=== PATIENT | female | born 1975 | race Caucasian/White ===

== ENCOUNTER 2018-12-23 08:40 | Emergency (ER) | payer BC ==
--- NOTE | 2018-12-23 08:55 | EDPHY ---
H & P Time Seen by Provider: 12/23/18 08:54 HPI/ROS: Chief complaint. Anxiety HPI. 43-year-old female presents emergency department by EMS with anxiety. She says is building up for the last few days. She has a history of panic attacks. She tells me she takes Ativan 2 mg 4 times daily and has been out the last several days. She has an upcoming appointment on Saturday. She awoke this morning feeling somewhat wobbly and foggy. She denies suicide and homicide ideation. No chest discomfort, shortness of breath, abdominal pain. No fever. ROS 10 systems were reviewed and negative with the exception of the elements mentioned in the history of present illness Past Medical/Surgical History: Anxiety, panic attacks, benzodiazepine withdrawal Social History: Single, nonsmoker, no alcohol Smoking Status: Never smoked Physical Exam: General Appearance: Alert well-developed female mild distress vital signs show heart rate 113 Eyes: Pupils equal and round no pallor or injection. ENT, Mouth: Mucous membranes are moist. Respiratory: There are no retractions, lungs are clear to auscultation. Cardiovascular: Regular rate and rhythm. Gastrointestinal: Abdomen is soft and nontender, no masses, bowel sounds normal. Neurological: Awake and alert, sensory and motor exams grossly normal. Skin: Warm and dry, no rashes. Musculoskeletal: Neck is supple nontender. Extremities symmetrical, full range of motion. Psychiatric: Patient is oriented X 3, there is no agitation. Constitutional: Initial Vital Signs Temperature (C) 36.5 C 12/23/18 09:02 Heart Rate 113 H 12/23/18 09:02 Respiratory Rate 18 12/23/18 09:02 Blood Pressure 110/89 H 12/23/18 09:02 O2 Sat (%) 99 12/23/18 09:02 O2 Delivery Mode Room Air Allergies/Adverse Reactions: codeine Allergy (Verified 12/23/18 09:04) Rash Sulfa (Sulfonamide Antibiotics) Allergy (Verified 12/23/18 09:04) Rash tramadol Allergy (Verified 12/23/18 09:04) Rash Home Medications: Medication Instructions Recorded Potassium Chloride Po [Potassium 20 meq PO DAILY #30 udcup 06/28/18 Chloride 20 mg/15 ml (*)] LORazepam [Ativan 2 mg tab] 2 mg PO Q6H #36 tablet 07/16/18 OXcarbazepine [Trileptal 300mg (*)] 300 mg PO BID #120 tab 07/16/18 LORazepam [Ativan] 1 mg PO Q6-8PRN PRN #10 tab 12/23/18 Medical Decision Making Procedures: EXECUTIVE MANAGER Aware shows no matches ED Course/Re-evaluation: Ativan 2 mg orally Multiple phone calls placed to patient's prescribing physician and the phone calls have not been return. 1 of the phone numbers has been disconnected I cannot find this patient on EXECUTIVE MANAGER Aware. Patient and I discussed treatment plan including criteria for return importance of follow-up and further evaluation. She expresses understanding and agreement Differential Diagnosis: Patient has a history of benzodiazepine withdrawal. She is out of her Ativan. I cannot find when was her last prescription. I have not been able to speak to her regular physician. I do not want the patient to go into benzo but diazepam in withdrawal and so she will be given a short prescription for Ativan until she can see her regular physician - Data Points Medications Given: Discontinued Medications Lorazepam (Ativan) 2 mg PO ONCE ONE Stop: 12/23/18 09:08 Last Admin: 12/23/18 09:12 Dose: 2 mg Departure - Departure Disposition: Home, Routine, Self-Care Clinical Impression: Anxiety Condition: Good Instructions: Anxiety (ED) Additional Instructions: Take 1 Ativan every 6-8 hours. Please contact your physician today or tomorrow to get your prescriptions refilled Return for worsening symptoms Referrals: Patient,NotPresent [Unknown] - As per Instructions Prescriptions: LORazepam [Ativan] 1 mg PO Q6-8PRN PRN #10 tab PRN Reason: Anxiety
[2018-12-23] MEDS ORDERED: LORazepam 1 MG TAB PO ONE (09:07)
[2018-12-23 11:26] VITALS: BP 105/70
== END 2018-12-23 11:26 | disposition home or self-care (01) ==
LOC: EDUNIT#
DX: F41.9 Anxiety disorder, unspecified (principal)